=== PATIENT | female | born 1995 | race Caucasian/White ===

== ENCOUNTER 2017-06-25 21:37 | Emergency (ER) | payer SELFPAY ==
[2017-06-25 23:24] VITALS: BP 123/64
== END 2017-06-25 23:24 | disposition home or self-care (01) ==
LOC: ED 21:37
DX: R10.13 Epigastric pain (principal)

== ENCOUNTER 2019-07-03 18:28 | Emergency (ER) | payer OTHER ==
[~2019-07-03] VITALS: Ht 165.1 cm; Wt 88.5 kg
[2019-07-03 18:41] VITALS: Ht 165.1 cm; Wt 88.5 kg
[2019-07-03 20:06] LABS: microscopic required? YES; urine erythrocyte NEGATIVE (NEGATIVE)
[2019-07-03 20:07] LABS: BASOPHIL % 0.5 % (0-2); PLATELET COUNT 275 x10^3mcL (130-400)
[2019-07-03 20:19] LABS: rbc morphology (normal/abnorm) ABNORMAL (NORMAL)
[2019-07-03 22:54] VITALS: BP 106/61
== END 2019-07-03 22:54 | disposition home or self-care (01) ==
LOC: ED 18:28
PROVIDERS: Emergency Medicine
DX: O26.852 Spotting complicating pregnancy, second trimester (principal); O23.592 Infection of other part of genital tract in pregnancy, second trimester; O99.012 Anemia complicating pregnancy, second trimester; Z3A.17 17 weeks gestation of pregnancy
CPT/HCPCS: 36415; 87491; 87591; J7030; Q0092